=== PATIENT | male | born 1945 | race Caucasian/White ===

== ENCOUNTER 2016-09-14 16:41 | Emergency (ER) | payer MEDICARE, BC ==
[2016-09-14 17:04] VITALS: BP 162/84
[2016-09-14] MEDS ORDERED: Lidocaine 1% 20 ML MDV SUBCUT ONE (17:09)
[2016-09-14] MEDS ORDERED: Lidocaine 1% 20 ML MDV ONE (17:09)
[2016-09-14] MEDS ORDERED: Diphtheria,Pertussis(Acell),Tetanus Vaccine 0.5 ML SDV IM ONE (17:50)
--- NOTE | 2016-09-14 17:57 | EDM.PDOC ---
ED HPI Trauma - General Chief Complaint: Upper Extremity Injury/Pain Stated Complaint: LEFT INDEX FINGER INJURY Time Seen by Provider: 09/14/16 17:20 Source: Reports: Patient History Limitations: Reports: No limitations - History of Present Illness INITIAL COMMENTS - FREE TEXT/NARRATIVE: PT STATES HE WAS USING A POWER SAW AND ACCIDENTALLY CUT LEFT INDEX FINGER. DENIES ANY OTHER INJURY. NOT UTD WITH TETANUS. Symptom Onset Date: 09/14/16 Occurred When: just prior to arrival Occurred Where: home Method of Injury: other (POWER TOOL) Pain/Injury Location: Reports: upper extremity, left Consciousness: Reports: no loss of consciousness Associated Symptoms: Reports: no other symptoms Allergies/ADRs: Allergies No Known Drug Allergies Allergy (Verified 09/14/16 17:04) Cannot Remember Home Medications: Ambulatory Orders Allopurinol [Zyloprim] 100 mg PO DAILY 09/14/16 [Confirmed 09/14/16] Atenolol 100 mg PO DAILY 09/14/16 [Confirmed 09/14/16] Moexipril [Univasc] 15 mg PO ACBREAKFAST 09/14/16 [Confirmed 09/14/16] metFORMIN [Glucophage] 1,000 mg PO BID 09/14/16 [Confirmed 09/14/16] Past Medical History Cardiovascular History: Reports: High cholesterol, Hypertension Endocrine/Metabolic History: Reports: Diabetes, type I, Obesity/BMI 30+ Oncologic (Cancer) History: Reports: Basal cell carcinoma - Past Surgical History Cardiovascular Surgical History: Reports: None Oncologic Surgical History: Reports: Other (see below) Other Oncologic Surgeries/Procedures: removed Social & Family History - Tobacco Use Smoking Status *Q: Former Smoker Years of Tobacco use: 15 Packs/Tins Daily: 1 Used Tobacco, but Quit: Yes Month Tobacco Last Used: 10 Second Hand Smoke Exposure: No - Caffeine Use Caffeine Use: Reports: Coffee Other Caffeine Use: 3 cups per day. diet pop rarely - Alcohol Use Days Per Week of Alcohol Use: 5 Number of Drinks Per Day: 3 Total Drinks Per Week: 15 - Recreational Drug Use Recreational Drug Use: No Review of Systems - Review of Systems Review Of Systems: ROS reveals no pertinent complaints other than HPI. Constitutional: Reports: no symptoms Eyes: Reports: no symptoms Ears: Reports: no symptoms Nose: Reports: no symptoms Mouth/Throat: Reports: no symptoms Respiratory: Reports: No Symptoms Cardiovascular: Reports: no symptoms GI/Abdominal: Reports: No symptoms Genitourinary: Reports: no symptoms Musculoskeletal: Reports: hand pain Skin: Reports: wound (LEFT INDEX FINGER LACERATION) Neurological: Reports: No Symptoms Psychiatric: Reports: no symptoms Trauma Exam - Physical Exam Exam: See Below Exam Limited By: No limitations General Appearance: Reports: alert, WD/WN, no apparent distress Head: Reports: atraumatic, normocephalic Throat/Mouth: Reports: Normal inspection, Normal oropharynx, No airway compromise Respiratory Exam: Reports: no respiratory distress Extremities: Reports: other (LEFT 2ND DIGIT DISTAL ASPECT 2 CM LINEAR LACERATION THROUGH NAIL) Neurologic: Reports: alert, normal mood/affect, oriented x 3 Skin: Reports: Normal color, Warm/dry Course - Vital Signs Last Recorded V/S: Last Vital Signs Temp 99.3 F 09/14/16 16:57 Pulse 70 09/14/16 16:57 Resp 20 09/14/16 16:57 BP 162/84 H 09/14/16 16:57 Pulse Ox 95 09/14/16 16:57 - Orders/Labs/Meds Orders: Active Orders 24 hr Category Date Time Status Vaccines to be Administered [RC] PER UNIT ROUTINE Care 09/14/16 17:51 Ordered Diphth,Pertuss(Acell),Tet Vac [Adacel] Med 09/14/16 17:50 Once 0.5 ml IM .ONCE ONE Meds: Medications Discontinued Medications Generic Name Dose Route Start Last Admin Trade Name Sandra PRN Reason Stop Dose Admin Lidocaine HCl Confirm 09/14/16 17:09 Xylocaine 1% Administered 09/14/16 17:10 Dose 20 ml .ROUTE .STK-MED ONE - Radiology Interpretation Free Text/Narrative:: XRAY SHOWED NO FRACTURE OR FB - Re-Assessments/Exams Free Text/Narrative Re-Assessment/Exam: 09/14/16 17:56 PT AFEBRILE, NONTOXIC APPEARING, TOLERATED PROCEDURE WELL. FINGER SPLINT APPLIED Departure - Departure Time of Disposition: 17:58 Disposition: Home, Self-Care 01 Condition: good Clinical Impression: Finger laceration Qualifiers: Encounter type: initial encounter Qualified Code(s): S61.219A - Laceration without foreign body of unspecified finger without damage to nail, initial encounter Instructions: Laceration Care, Adult, [id number], Nail Bed Injury, Easy-to- Read Forms: ED Department Discharge Additional Instructions: FOLLOW UP WITH YOUR PCP IN 10 DAYS FOR SUTURE REMOVAL - My Orders Last 24 Hours: My Active Orders 09/14/16 17:50 Diphth,Pertuss(Acell),Tet Vac [Adacel] 0.5 ml IM .ONCE ONE 09/14/16 17:51 Vaccines to be Administered [RC] PER UNIT ROUTINE - Assessment/Plan Last 24 Hours: My Active Orders 09/14/16 17:50 Diphth,Pertuss(Acell),Tet Vac [Adacel] 0.5 ml IM .ONCE ONE 09/14/16 17:51 Vaccines to be Administered [RC] PER UNIT ROUTINE Assessment:: LEFT INDEX FINGER LACERATION REPAIR Plan: F/U WITH PCP FOR SUTURE REMOVAL IN 10 DAYS
== END 2016-09-14 18:10 | disposition home or self-care (01) ==
LOC: KA.ED 16:41
DX: S61.211A Laceration without foreign body of left index finger without damage to nail, initial encounter (principal); E78.00 Pure hypercholesterolemia, unspecified; I10 Essential (primary) hypertension; W27.0XXA Contact with workbench tool, initial encounter; Z23 Encounter for immunization; Z79.899 Other long term (current) drug therapy; Z79.84 Long term (current) use of oral hypoglycemic drugs; E66.9 Obesity, unspecified; Z87.891 Personal history of nicotine dependence
CPT/HCPCS: 12001; 73140; 90471; 90715; 99282; 99283; L3999